=== PATIENT | male | born 1995 | race African-American/Black ===

== ENCOUNTER 2021-06-18 20:31 | Emergency (ER) | payer SELFPAY ==
[2021-06-18] MEDS ORDERED: Acetaminophen 500 MG TAB ONE (23:22)
[2021-06-19 20:20] LABS: SARS-CoV-2 PCR by NAA DETECTED (NotDetected)
== END 2021-06-18 23:40 | disposition home or self-care (01) ==
LOC: CSHERS 20:31
DX: U07.1 COVID-19 (principal); M25.50 Pain in unspecified joint; R51.9 Headache, unspecified
CPT/HCPCS: 99283; U0003; U0005